=== PATIENT | male | born 2000 | race African-American/Black ===

== ENCOUNTER 2023-02-19 19:49 | Emergency (ER) | payer SELFPAY ==
[2023-02-19 19:57] VITALS: BP 133/86; PULSE 67; RESP 16; TEMP 36.6; O2SAT 99; BMI 24.2
--- NOTE | 2023-02-19 20:27 | ED_ITS ---
HPI - Male Genitourinary General Chief complaint: Urogenital-Male Stated complaint: UTI Time Seen by Provider: 02/19/23 20:01 Source: patient Mode of arrival: walk-in History of Present Illness HPI Narrative: This 22-year-old male who was working locally and from [place] presents for evaluation of 3 days of painless hematuria. He denies any flank pain or abdominal pain. He denies any nausea or vomiting. He has never had any kidney stones. He is sexually active but denies any penile discharge. He has no penile or scrotal pain. 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 He has not had any T-colored urine. He states that typically when he starts a urine stream it is clear but then at the and there are several drops of blood. He has not had a fever. He denies any pain at this time. Onset (ago): day(s) (3) Related Data Sexually active: Yes Allergies Allergy/AdvReac Type Severity Reaction Status Date / Time No Known Drug Allergies Allergy Verified 02/19/23 19:56 Review of Systems ROS Status of ROS 10 or more systems reviewed and unremarkable except as noted in history and below Exam Narrative Exam Narrative: Nurses note and vital signs reviewed and patient is not hypoxic. General: Tall, thin, -Mong[place]ian male, no distress noted. The patient appears well and in no apparent distress. Skin: Warm, dry, no pallor noted. There is no rash noted. Head: Normocephalic, atraumatic Eye: Normal conjunctiva, no drainage, EOMI. PERRL Ears, Nose, Mouth, and Throat: oral mucosa is moist. Nares patent. Mouth without vesicles. Ear canals patent. Tm's without Erythema Cardiovascular: Regular Rate and Rhythm Respiratory: Patient is in no distress, no accessory muscle use, lungs are clear to auscultation, no wheezing, rales or rhonchi Back: non-tender, no CVA tenderness bilaterally to percussion. GI: Normal bowel sounds, no tenderness to palpation, no masses appreciated. No rebound, guarding, or rigidity noted. - pt declined exam Musculoskeletal: The patient has no evidence of calf tenderness, no pitting e mariama, symmetrical pulses noted bilaterally Neurological: A&O x4, normal speech Psychiatric: Cooperative Constitutional Vital Signs, click to edit/add: Last Vital Signs Temp 97.8 F 02/19/23 19:57 Pulse 67 02/19/23 19:57 Resp 16 02/19/23 19:57 BP 133/86 H 02/19/23 19:57 Pulse Ox 99 02/19/23 19:57 O2 Del Method Room Air 02/19/23 19:57 Course Vital Signs Vital signs: Vital Signs Temperature 97.8 F 02/19/23 19:57 Pulse Rate 67 02/19/23 19:57 Respiratory Rate 16 02/19/23 19:57 Blood Pressure 133/86 H 02/19/23 19:57 Pulse Oximetry 99 02/19/23 19:57 Oxygen Delivery Method Room Air 02/19/23 19:57 Temperature 97.8 F 02/19/23 19:57 Pulse Rate 67 02/19/23 19:57 Respiratory Rate 16 02/19/23 19:57 Blood Pressure 133/86 H 02/19/23 19:57 Pulse Oximetry 99 02/19/23 19:57 Oxygen Delivery Method Room Air 02/19/23 19:57 MDM - Male Genitourinary MDM Narrative Medical decision making narrative: This 22-year-old male presents for evaluation of painless hematuria that has been present for the past 3 days. He is sexually active. He denies any penile or scrotal lesions or discharge. He denies any dysuria. He states that he has naina blood that dripped out after the end of his urine stream. He has no flank pain or history of kidney stones. He denies any nausea or vomiting. He is working locally in [employer] and from [place]. Denies any recent strenuous activity or excessive time in the heat leading to rhabdomyolysis. He denies that he has had any tea-colored urine. An initial urine was sent that was cloudy with moderate occult blood. There was otherwise no sign of infection. I added a GC and Chlamydia onto the urinalysis. I was then concerned that the patient could be having an issue with his kidneys and ordered routine labs. He has a normal white count and hemoglobin. He is not anemic. His comprehensive metabolic profile was normal. CPK is pending at the time of this dictation. Clinically the patient does not have rhabdo. CT scan of the abdomen and pelvis was ordered and shows circumferential wall thickening concerning for cystitis. This was related to the patient. I explained to him the etiology of cystitis could be a simple bladder infection which meant typically don't get or could be a sexually transmitted disease. He did decline a pelvic area exam. He was agreeable to an IM injection of Rocephin and oral Zithromax to empirically treat both gonorrhea and chlamydia. He will be discharged home with a prescription for Cipro in case this is just a simple cystitis. He was encouraged to drink plenty of fluids, return to emergency department for worsening symptoms, Tea-colored urine or any concerns. Differential Diagnosis Differential diagnosis: Likely urinary tract infection and urethritis Lab Data Labs: Lab Results 02/19/23 02/19/23 Range/Units 20:00 20:50 WBC 7.8 (4.0-11.0) 10^3/uL RBC 5.64 (4.70-6.10) 10^6/uL Hgb 17.2 (14.0-18.0) g/dL Hct 51.0 (42.0-54.0) % MCV 90.4 (80.0-94.0) fL MCH 30.5 (25.9-34.0) pg MCHC 33.7 (29.9-35.2) g/dL RDW 13.0 (11.0-15.0) % Plt Count 329 (150-450) 10^3/uL MPV 8.8 L (9.5-13.5) fL Neut % (Auto) 57.8 (43.0-75.0) % Lymph % (Auto) 32.2 (20.5-60.0) % [place] % (Auto) 6.6 (1.7-12.0) % Eos % (Auto) 2.3 (0.9-7.0) % Baso % (Auto) 0.8 (0.2-2.0) % Neut # (Auto) 4.5 (1.4-6.5) 10^3/uL Lymph # (Auto) 2.5 (1.2-3.8) 10^3/uL [place] # (Auto) 0.5 (0.3-0.8) 10^3/uL Eos # (Auto) 0.2 (0.0-0.7) 10^3/uL Baso # (Auto) 0.1 (0.0-0.1) 10^3/uL Abs Immat Gran (auto) 0.02 (0.00-0.03) 10^3/uL Imm/Tot Granulo (auto) 0.3 (0.0-0.5) % Sodium 139 (136-145) mmol/L Potassium 3.8 (3.5-5.1) mmol/L Chloride 102 (98-107) mmol/L Carbon Dioxide 27.1 (21.0-32.0) mmol/L Anion Gap 13.7 BUN 12.0 (7.0-18.0) mg/dL Creatinine 1.09 (0.70-1.30) mg/dL Est GFR ( Amer) >60 (>=60) Est GFR (Non-Af Amer) >60 (>=60) BUN/Creatinine Ratio 11.0 Glucose 114 H (74-106) mg/dL Calcium 9.8 (8.5-10.1) mg/dL Total Bilirubin 0.5 (0.2-1.0) mg/dL AST 13 L (15-37) U/L ALT 13 L (16-63) U/L Alkaline Phosphatase 99 (46-116) U/L Total Creatine Kinase 150 (39-308) U/L Total Protein 9.9 H (6.4-8.2) g/dL Albumin 4.8 (3.4-5.0) g/dL Globulin 5.1 g/dL Albumin/Globulin Ratio 0.9 Urine Color Yellow (YELLOW) Urine Clarity Slightly cloudy A (CLEAR) Urine pH 6.0 (5.0-9.0) Ur Specific [place] >=1.030 A (1.005-1.025) Urine Protein Negative (NEG/TRACE) mg/dL Urine Glucose (UA) Negative (NEGATIVE) mg/dL Urine Ketones Negative (NEGATIVE) mg/dL Urine Occult Blood Moderate A (NEGATIVE) Urine Nitrite Negative (NEGATIVE) Urine Bilirubin Negative (NEGATIVE) Urine Urobilinogen 1.0 (0.2-1.0) EU/dL Ur Leukocyte Esterase Negative (NEGATIVE) Urine RBC 20-50 A (0-2) #/HPF Urine WBC 2-5 A (NONE SEEN) #/HPF Ur Squamous Epith Cells None seen (NONE/RARE) #/LPF Urine Crystals None seen (None Seen) #/HPF Urine Bacteria None seen (NONE SEEN) #/HPF Urine Casts None seen (NONE SEEN) #/LPF Urine Mucus None seen (NONE SEEN) Ur Culture Indicated? No Discharge Plan Discharge Chief Complaint: Urogenital-Male Clinical Impression: Urinary tract infection, Gonococcal urethritis in male Time of Disposition Decision: 21:41 Instructions: Nonspecific Urethritis in Men (ED), Urinary Tract Infection in Men (ED) Stand Alone Forms: Portal Instructions Referrals: Physician,Non-Staff, MD [Primary Care Provider] - 1 week
[2023-02-19 20:31] LABS: Bilirubin Urine NEGATIVE (NEGATIVE); Blood Urine MODERATE (NEGATIVE); Color Urine YELLOW (YELLOW); Glucose Urine UA NEGATIVE (NEGATIVE); Ketones Urine NEGATIVE (NEGATIVE); Leukocyte Esterase Urine NEGATIVE (NEGATIVE); Nitrite Urine NEGATIVE (NEGATIVE); Protein Urine NEGATIVE (NEG/TRACE); Specific Gravity Urine >=1.030 (1.005-1.025)
[2023-02-19 20:32] LABS: Clarity Urine SLIGHTLY CLOUDY (CLEAR); Urine Microscopic Indicated YES
[2023-02-19 20:34] LABS: Bacteria Urine NONE SEEN #/HPF (NONE SEEN); Cast Seen? NONE SEEN #/LPF (NONE SEEN); Crystals Seen? None Seen #/HPF (None Seen); Mucus Urine NONE SEEN (NONE SEEN); RBC Urine 20-50 #/HPF (0-2); Squamous Epithelial Cell Urine NONE SEEN #/LPF (NONE/RARE); Urine Culture Indicated NO
--- NOTE | 2023-02-19 20:39 | CT_ITS ---
[facility] [id number] Patient Name: VERN PARSONS MRN: [id number] date: 2000 Sex: M Assigned Patient Location: ER Current Patient Location: ER Accession/Order Number: [id number] Exam Date: 02/19/2023 20:55 Report Date: 02/19/2023 21:16 At the request of: NATA MARKER Procedure: CT abdomen pelvis wo con EXAMINATION: CT ABDOMEN AND PELVIS WITHOUT IV CONTRAST CLINICAL HISTORY: Hematuria. TECHNIQUE: Non-IV contrast imaging of the abdomen and pelvis was performed using standard technique, scanning from just above the dome of the diaphragm to the symphysis pubis. Unenhanced imaging is limited for the evaluation of some intra-abdominal and pelvic pathology. All CT scans at this facility use dose modulation, iterative reconstruction, and/or weight based dosing when appropriate to reduce radiation dose to as low as reasonably achievable. Contrast: IV: None COMPARISON: None. RESULT: Abdomen / Pelvis: Liver: Unremarkable. Biliary: The gallbladder is unremarkable. Spleen: No splenomegaly. Pancreas: Unremarkable. Adrenals: Normal. Kidneys: No calculus, hydronephrosis or finding to suggest a cyst or mass in the unenhanced kidney. GI Tract: No bowel dilation. Normal appendix. No diverticulosis. Large amount of colonic stool. Lymph Nodes: No lymphadenopathy. Mesentery/peritoneum: No ascites. Retroperitoneum: No mass. Vasculature: No abdominal aortic or iliac artery aneurysm. Pelvis: No mass or ascites. Diffuse circumferential urinary bladder wall thickening, concerning for cystitis. Bones/Soft Tissues: No acute abnormality. Lower thorax: Unremarkable. CT/CT abdomen pelvis wo con IMPRESSION: Circumferential urinary bladder wall thickening, concerning for cystitis. Otherwise, no acute findings in the abdomen and pelvis. Electronically authenticated by: SHERRILL MCKEON Date: 02/19/2023 21:16
[2023-02-19 20:56] LABS: Basophils Absolute Auto 0.1 10^3/uL (0.0-0.1); Basophils Percent Auto 0.8 % (0.2-2.0); Eosinophils Absolute Auto 0.2 10^3/uL (0.0-0.7); Eosinophils Percent Auto 2.3 % (0.9-7.0); Hemoglobin 17.2 g/dL (14.0-18.0); Immature Granulocytes Abs Auto 0.02 10^3/uL (0.00-0.03); Immature Granulocytes Pct Auto 0.3 % (0.0-0.5); Lymphocytes Absolute Auto 2.5 10^3/uL (1.2-3.8); Lymphocytes Percent Auto 32.2 % (20.5-60.0); Mean Corpuscular HGB Conc 33.7 g/dL (29.9-35.2); Mean Corpuscular Hemoglobin 30.5 pg (25.9-34.0); Mean Corpuscular Volume 90.4 fL (80.0-94.0); Mean Platelet Volume 8.8 fL (9.5-13.5); Monocytes Absolute Auto 0.5 10^3/uL (0.3-0.8); Monocytes Percent Auto 6.6 % (1.7-12.0); Neutrophils Absolute Auto 4.5 10^3/uL (1.4-6.5); Neutrophils Percent Auto 57.8 % (43.0-75.0); Platelet Count 329 10^3/uL (150-450); Red Blood Count 5.64 10^6/uL (4.70-6.10); White Blood Count 7.8 10^3/uL (4.0-11.0)
[2023-02-19 21:08] LABS: Alanine Aminotransferase 13 U/L (16-63); Albumin Globulin Ratio 0.9; Albumin Level 4.8 g/dL (3.4-5.0); Alkaline Phosphatase 99 U/L (46-116); Anion Gap 13.7; Aspartate Amino Transferase 13 U/L (15-37); Bilirubin Total 0.5 mg/dL (0.2-1.0); Calcium 9.8 mg/dL (8.5-10.1); Carbon Dioxide 27.1 mmol/L (21.0-32.0); Chloride 102 mmol/L (98-107); Creatine Kinase 150 U/L (39-308); Estimated GFR (African America >60 (>=60); Estimated GFR (Non-African Ame >60 (>=60); Globulin 5.1 g/dL; Glucose 114 mg/dL (74-106); Potassium 3.8 mmol/L (3.5-5.1); Sodium 139 mmol/L (136-145); Total Protein 9.9 g/dL (6.4-8.2)
[2023-02-19] MEDS: ONDANSETRON 4 MG RAPDIS TABLET SL (21:50)
[2023-02-19] MEDS: CEFTRIAXONE 250 MG, WATER FOR INJECTION,STERILE 0.9 ML IM (21:50)
[2023-02-19] MEDS: AZITHROMYCIN 250 MG TABLET 1000 MG PO (22:16)
== END 2023-02-19 22:18 | disposition home or self-care (01) ==
PROVIDERS: Emergency Provider Emergency Medicine
DX: N39.0 Urinary tract infection, site not specified (principal); A54.01 Gonococcal cystitis and urethritis, unspecified
CPT/HCPCS: 36415; 74176; 80053; 81003; 81015; 82550; 85025; 87491; 87591; 96372; 99285